=== PATIENT | female | born 1995 | race Caucasian/White ===

== ENCOUNTER 2025-08-26 10:07 | Emergency (ER) | payer OTHER, SELFPAY ==
--- NOTE | ~2025-08-26 | XR_ITS ---
Examination: XR foot LT 2V Clinical History: pain to dorsal aspect of left foot, left 1,2,3 toe Comparison: None Technique: 4 views left foot Findings/impression: 1. No fracture or dislocation left foot. 2. Cystic and sclerotic calcaneal focus, benign features, possibly bone cyst. Recommend repeat x-rays in 6 months. Reviewed, dictated and finalized at location R. LAP BONDER
[2025-08-26 10:16] VITALS: BP 144/100; PULSE 97; RESP 18; TEMP 35.9; O2SAT 100
--- NOTE | 2025-08-26 10:26 | ED.EXTPRO ---
HPI - Extremity Problem General Chief complaint: Extremity Problem,Nontraumatic Stated complaint: LT Foot / 1st Toe Pain Source: patient Mode of arrival: ambulatory Limitations: no limitations History of Present Illness HPI Narrative: 29-year-old female presents to [facility] with complaints of pain to dorsal aspect of her left foot and pain to the base of her left 1st 2nd and 3rd toes for the past 2 days. Patient reports that she cannot recall injury but reports that she drops things often on her feet. Patient denies history of gout but reports that her mother does have a history of gout. Patient has been taking [id number]-[id number] Tylenol with little relief. Patient reports history of fracture to her right foot MD Complaint: extremity pain Onset (ago): day(s) (2) Pain Consistency: constant Location: left Radiation: none Exacerbating factors: walking and palpation Associated symptoms: denies other symptoms Related Data Home Medications ?Medication ?Instructions ?Recorded ?Confirmed ?Last Taken ?Type norethindrone (contraceptive) 0.35 mg 08/26/25 Unknown History mg tablet (Nita) Allergies Allergy/AdvReac Type Severity Reaction Status Date / Time No Known Allergies Allergy Verified 08/26/25 10:14 Review of Systems Constitutional: Constitutional: Denies chills, Denies fatigue, Denies fever(s) and Denies weakness ENT: Denies vertigo, Denies dizziness, Denies epistaxis and Denies nasal congestion Cardiovascular: Cardiovascular: Denies chest pain Respiratory: Respiratory: Denies cough, Denies dyspnea and Denies wheezing Gastrointestinal: Gastrointestinal: Denies diarrhea, Denies nausea and Denies vomiting Musculoskeletal: Musculoskeletal: Reports arthralgias, Denies joint swelling and Denies muscle cramps Comments: Pain to left foot Integumentary/Breasts: Skin/Breast: Denies pruritus, Denies erythema and Denies rash Neurologic: Denies vertigo and Denies dizziness PMFSH Comments At time of signature, I agree with nursing past medical, surgical, social and family history. There is no relevant family history pertinent to the presenting complaint. Exam Const: General: healthy appearing and no acute distress Nutritional Appearance: well nourished Orientation/consciousness: patient oriented x3 Limitations: no limitations HENMT: Head: normal to inspection Eyes: Conjunctivae: conjunctivae normal Neck: Neck: normal visual inspection Resp: Effort & Inspection: normal respiratory effort and not labored Auscultation: clear to auscultation bilaterally, no crackles, no rales, no rhonchi and no wheezes Cardio: Rate: regular rate Rhythm: regular rhythm Heart sounds: no murmurs Skin: General skin exam: normal color Rashes: no rashes Wounds: no wounds Neuro: General: patient oriented x3 and moves all extremities Speech: normal speech Extrem: General: normal to inspection Other: Left foot is normal to inspection, there is no swelling, bruising or erythema noted. There is very mild warmth noted to left great toe. There is pain noted upon palpation to dorsal aspect of left foot as well as to left 1st 2nd and 3rd toes. No wounds noted Psych: Affect: normal affect Attitude: cooperative Course Course Level of Care: Express Care Visit Vital Signs Vital signs: Vital Signs Temperature 35.9 C L 08/26/25 10:16 Pulse Rate 97 08/26/25 10:16 Respiratory Rate 18 08/26/25 10:16 Blood Pressure 144/100 H 08/26/25 10:16 Pulse Oximetry 100 08/26/25 10:16 Oxygen Delivery Room Air 08/26/25 10:16 Temperature 35.9 C L 08/26/25 10:16 Pulse Rate 97 08/26/25 10:16 Respiratory Rate 18 08/26/25 10:16 Blood Pressure 144/100 H 08/26/25 10:16 Pulse Oximetry 100 08/26/25 10:16 Oxygen Delivery Room Air 08/26/25 10:16 MDM - Extremity (Nontraumatic) MDM Narrative Medical decision making narrative: Rice therapy discussed with patient. Instructed patient to follow-up with primary care provider or crepe box tender to discuss bony cyst noted on xray. X-ray results discussed with patient. Educated patient to proceed to the emergency room if symptoms worsen. Johnny wrap applied to left foot per nursing staff Differential Diagnosis Differential diagnosis: Likely gout and cellulitis Imaging Data Radiologist's impression: Ordering Physician: Celeste Harris APRN Date of Service: 08/26/25 Procedure(s): XR foot LT 2V Accession Number(s): [id number] cc: Celeste Harris APRN; ELDENA~ Examination: XR foot LT 2V Clinical History: pain to dorsal aspect of left foot, left 1,2,3 toe Comparison: None Technique: 4 views left foot Findings/impression: 1. No fracture or dislocation left foot. 2. Cystic and sclerotic calcaneal focus, benign features, possibly bone cyst. Recommend repeat x-rays in 6 months. Reviewed, dictated and finalized at location R. [facility] READ[employer] TECHNICIAN Please be advised this is a medical document. It is intended for [id number] communication. It is written in medical language and may contain unfamiliar abbreviations or verbiage. Medical documents are intended to carry relevant information, facts as evident, and the clinical opinion of the practitioner at the time of the encounter. This report may have been done utilizing a voice recognition system. Attempts have been made to correct errors. However, there may be uncorrected grammatical, spelling, and recognition errors present. The file time of this note does not necessarily represent the time of service. Dictated By: Bradly Amezquita MD 08/26/25 1040 Signed By: <Electronically signed by Bradly Amezquita MD in OV> 08/26/25 1051 Critical Care Time Critical Care Time Critical Care Time: No Discharge Plan Discharge Clinical Impression: Acute pain of left foot Patient Disposition: Home Condition: Stable Instructions: Musculoskeletal Pain (ED) Additional Instructions: Elevate left foot and apply cool compresses to area of pain Do not take other NSAIDs while taking meloxicam Follow-up with primary care provider or crepe box tender to discuss x-ray results and possibly get repeat imaging Proceed to the emergency room if symptoms worsen Patient Language: [place] Prescriptions: New meloxicam 7.5 mg tablet 7.5 mg PO BID 7 Days Qty: 14 0RF No Action norethindrone (contraceptive) [Nita] 0.35 mg tablet Follow-up/Referrals: [facility], [Primary Care Provider] Time of Disposition: 10:58
== END 2025-08-26 11:00 | disposition home or self-care (01) ==
PROVIDERS: Emergency Provider Nurse Practitioner Family
DX: M79.672 Pain in left foot (principal); K21.9 Gastro-esophageal reflux disease without esophagitis
CPT/HCPCS: 73620; 99203; G0463